=== PATIENT | male | born 1980 | race Two or more races ===

== ENCOUNTER 2021-11-30 23:30 | Emergency (ER) | payer OTHER ==
[~2021-11-30] VITALS: Ht 175.3 cm; Wt 59.9 kg
--- NOTE | 2021-12-01 00:10 | NUR ---
BIBSELF C/O CP STARTED AT 11PM. PT A/OX4. TOLERATING R/A WELL WITH NO SOB. AMBULATORY WITH STEADY GAIT. SAFETY MEASURES IN PLACE.
--- NOTE | 2021-12-01 01:14 | NUR ---
Patient discharged to home in stable condition. Written and verbal after care instructions given. Patient verbalizes understanding of instruction. pt ambulatory with a steady gait
[2021-12-01 01:21] VITALS: BP 137/70
== END 2021-12-01 01:22 | disposition home or self-care (01) ==
LOC: ER 23:47
DX: R07.89 Other chest pain (principal)
CPT/HCPCS: 71045-TC